=== PATIENT | female | born 1965 | race Two or more races ===

== ENCOUNTER 2024-07-17 23:33 | Emergency (ER) | payer MEDICAID, SELFPAY ==
[2024-07-17 23:49] VITALS: BP 121/79; PULSE 80; RESP 17; TEMP 36.7; O2SAT 96
[2024-07-17 23:50] VITALS: BMI 35.5
--- NOTE | 2024-07-18 01:42 | EDNOTE_ITS ---
<Statement entered by Nimco Goyal MD - 09/24/24 19:08> As co-signing physician, I was present and available for consult prn. I concur with the plan and care as documented by the midlevel provider. ED Animal Bite RME/HPI General Chief Complaint: Animal Bite Stated Complaint: DOG BITE Time Seen by Provider: 07/18/24 00:35 Arrival date/time: 07/17/24 23:33 RME / HPI RME / HPI narrative: 59-year-old female presents to the ED with a complaint of left lower leg dog bite wound. Patient states she was walking by her neighbors and one of the neighbors small dogs came and bit her on the left lower lateral leg. Patient's tetanus has been greater than 10 years. She was told the dog is up-to-date on his immunizations. She has no allergies to medications. complaint: animal bite Related Data Home Medications ?Medication ?Instructions ?Recorded ?Confirmed ibuprofen 600 mg tablet 600 mg PO QID PRN Pain 08/2508/26/18 Previous Rx's ?Medication ?Instructions ?Recorded docusate sodium 100 mg capsule 100 mg PO BID #50 caps 08/28/18 hydrocodone 5 mg-acetaminophen 325 1 tab PO Q6HR PRN P AIN 1-6 08/28/18 mg tablet (MILD-MOD #25 tabs ofloxacin 0.3 % eye drops See Rx Instructions ophthalm ic 02/09/20 (eye) .COMPLEX #5 mL ciprofloxacin HCl 500 mg tablet 500 mg PO BID #14 tabs 10/11/21 (Cipro) amoxicillin 875 mg-potassium 1 tab PO Q12H Animal bite #20 tabs 07/18/24 clavulanate 125 mg tablet meloxicam 7.5 mg tablet 7.5 mg PO QDAY #7 tabs 07/18 Allergies Allergy/AdvReac Type Severity Reaction Status Date / Time No Known Allergies Allergy Verified 07/17/24 23:33 Review of Systems Review of Systems Systems Reviewed: All systems reviewed, normal except as documented Past Medical History Past Medical History NEUROLOGIC: Negative Neurological Disorders or Seizures CARDIAC: Positive Hypercholesterolemia and Edema; Negative Cardiac Disorders or Congestive Heart Failure RESPIRATORY: Positive Tuberculosis; Negative Chronic Obstructive Pulmonary Disease (COPD) or Asthma GASTROINTESTINAL: Positive Gastrointestinal Disorders and Ulcer GENITOURINARY: Positive Genitourinary Disorders and Kidney Stones; Negative Renal Disease REPRODUCTIVE: Positive Previous Pregnancies MUSCULOSKELETAL: Positive Musculoskeletal Disorders ENDOCRINE: Positive Endocrine Disorders; Negative Diabetes Mellitus Type 1 or Diabetes Mellitus Type 2 HEMATOLOGIC: Negative Blood Disorders or Sickle Cell Disease OTHER HISTORY: Positive Measles; Negative Hospitalization, Shingles, Falls, Blood Transfusions, Blood Transfusion Reaction, Anesthesia Reactions, Chemotherapy, Radiation Therapy or MRSA Family History FAMILY HISTORY: Positive Family Cancer; Negative Family Respiratory Disorders, Family Cardiac Disorders or Family Gastrointestinal Problems Social History SMOKING STATUS: Never smoker ED Exam Narrative Physical exam: Alert and oriented 59 year old female, no acute distress. Afebrile and non- toxic. Vital signs stable. Lung clear, RRR. Moves all extremities well. Left lateral lower leg with gite wound. Bleeding controlled. CMS intact distally. Course Course Course Narrative: Wounds were cleansed and dressed. TDap updated. Augmentin 875mg PO given. Quality Measures none Orders Category Date Time Status Cleanse Wound NEEDED Care 07/18/24 01:43 Completed TDap [Obtain Tdap Consent] X1 Care 07/18/24 01:43 Completed Amoxicillin/Pot Clav 875 [Augmentin 875] Med 07/18/24 01:43 Discontinued 1 tab PO X1 ONE TET,DIP/PERT AC (Adult)-Tdap [Boostrix Adult (Tdap) Med 07/18/24 01:43 Discontinued Vacc] 0.5 ml IMI .ONCE ONE As noted above. Vital Signs Vital signs: Vital Signs Temperature 98.1 F 07/17/24 23:49 Pulse Rate 80 07/17/24 23:49 Respiratory Rate 17 07/17/24 23:49 Blood Pressure 121/79 07/17/24 23:49 Pulse Oximetry (%) 96 07/17/24 23:49 Oxygen Delivery Method Room Air 07/17/24 23:49 Animal Bite MDM Narrative MDM Narrative:: 59-year-old female presents to the ED with a complaint of left lower leg dog bite wound. Patient states she was walking by her neighbors and one of the neighbors small dogs came and bit her on the left lower lateral leg. Patient's tetanus has been greater than 10 years. She was told the dog is up-to-date on his immunizations. She has no allergies to medications. Alert and oriented 59 year old female, no acute distress. Afebrile and non- toxic. Vital signs stable. Lung clear, RRR. Moves all extremities well. Left lateral lower leg with gite wound. Bleeding controlled. CMS intact distally. Wounds were cleansed and dressed. TDap updated. Augmentin 875mg PO given. Patient data External records reviewed:: None Clinical information provided by:: patient Social determinants that could affect healthcare access:: none Patient has the following chronic illnesses:: Anxiety How is presenting disease/condition affected by chronic disease/condition?: uneffected by Evaluation data The following diagnostics were reviewed and interpreted by me:: other (specify) (N/A) Lab and/or radiology exams considered but not ordered:: N/A Interpretation Summary: N/A Medications / Prescriptions Medications or Prescriptions considered but not ordered:: N/A Medication administrations:: Medication Administration History Discontinued Medications Amoxicillin/Clavulanate Potassium (Amoxicillin/Pot Clav 875 Tablet) 1 tab PO X1 ONE Stop: 07/18/24 01:44 Last Admin: 07/18/24 01:54 Dose: 1 tab Documented By: FRANKIE Diphtheria/Tetanus/Acell Pertussis (Diphth,Pertuss(Acell),Tet Vac 0.5 Ml Syr- Adult) 0.5 ml IMi .ONCE ONE Stop: 07/18/24 01:44 Last Admin: 07/18/24 01:53 Dose: 0.5 ml Documented By: FRANKIE As above Consultations Consultation(s) initiated? (list below): No Diagnosis Differential diagnosis animal bite: bite by animal, dog bite and rabies contact Most likely diagnosis given after review of the tests above:: Dog Bite Admission Indicated Admission indicated?: not indicated Explain why admission is indicated or not indicated:: Stable for discharge Admission Request Was there a request for admission?: No Disposition Plan Disposition Plan: Discharge Discharge Attestation Discharge Attestation: The patient and all family members were given an opportunity to ask questions and understood the discharge instructions. Discharge instructions specifically effects, indications for sooner follow up or return to the emergency department, and the expected course of current diagnosis. Patient condition: Stable Discharge Plan Plan Patient Disposition: HOME (Self Care) Discharge Disposition comment: Stable and improved Prescriptions/Referrals Prescriptions/Med Rec: New amoxicillin-pot clavulanate 875-125 mg tablet 1 tab PO Q12H Qty: 20 0RF meloxicam 7.5 mg tablet 7.5 mg PO QDAY Qty: 7 0RF No Action ibuprofen 600 mg Tablet 600 mg PO QID PRN (Reason: Pain) hydrocodone-acetaminophen 5-325 mg Tablet 1 tab PO Q6HR MDD 4 PRN (Reason: PAIN 1-6 (MILD-MOD) Qty: 25 0RF docusate sodium 100 mg Capsule 100 mg PO BID Qty: 50 0RF ciprofloxacin HCl [Cipro] 500 mg tablet 500 mg PO BID Qty: 14 0RF ofloxacin 0.3 % drops See Rx Instructions .ROUTE .COMPLEX Qty: 5 0RF Rx Instructions: put 1-2 drps into affected eye(s) every 2-4 h x 2 days, then 1-2 drps 4 times/day days 3-7 Problem List Clinical Impression: Dog bite Patient/Caregiver Discharge Instructions Education Materials: ED Dog Bite Additional Instructions: Watch for signs of infection which would include redness surrounding the wound, swelling, or increased pain. Follow-up with your primary care physician in 24 to 48 hours. Return to the ED for any new or worsening symptoms. Print Language: Slovenian Stand Alone Forms: Katerine Award Info., Patient Portal Info Letter PA/[employer] Supervising Physician PA/TYSON Supervising Physician: Dr. Goyal
[2024-07-18] MEDS: DIPHTH,PERTUSS(ACELL),TET VAC 0.5 ML SYR- ADULT IMi (01:53)
[2024-07-18] MEDS: AMOXICILLIN/POT CLAV 875 TABLET 1 TAB PO (01:54)
== END 2024-07-18 02:10 | disposition home or self-care (01) ==
LOC: SERX 07-18 02:15
PROVIDERS: Emergency Provider Emergency Medicine; PCP Family Medicine
DX: S81.852A Open bite, left lower leg, initial encounter (principal); W54.0XXA Bitten by dog, initial encounter; Y93.01 Activity, walking, marching and hiking; Z23 Encounter for immunization
CPT/HCPCS: 90471; 90715; 99282; A9270